=== PATIENT | male | born 1995 | race Caucasian/White ===

== ENCOUNTER 2024-10-18 12:31 | Emergency (ER) | payer SELFPAY ==
--- OUTSIDE RECORDS SUMMARY | 2024-10-18 12:34 | XMS_ITS | Clinical Summary ---
Author Organization [address] Address [address] [place] [address] Care Team Providers Care Linux Unix Engineer Name Role Phone Sherri Clements MD Primary Care Provider Allergies Active Allergy Reactions Criticality Noted Date Comments Avocado Itching Low 01/09/2019 Cat Hair Standardized Allergenic Extract Shortness of breath High 08/31/2013 Asthma and eyes swell. Medications fluticasone propionate (FLONASE) 50 mcg/actuation nasal spray 4 Active budesonide-formo teroL (Symbicort) 160-4.5 mcg/actuation inhalerIndicatio ns:Mild intermittent asthma without complication Inhale 2 puffs 2 (two) times a day as needed (SOB/wjheeze during flares) Rinse mouth with water after use. Do not swallow. 1 each 2 4 Active Additional Information Patient not taking.Reported on 10/04/2024 albuterol HFA (PROVENTIL HFA,VENTOLIN HFA,PROAIR HFA) 90 mcg/actuation inhalerIndicatio ns:Mild intermittent asthma without complication Inhale 2 puffs every 6 (six) hours as needed for wheezing 1 each 4 4 Active Active Problems Problem Noted Date Diagnosed Date Cat allergies 09/14/2023 Assessment & Plan (09/14/2023 11:01 AM CDT): Chronic. Avoid triggers. Encouraged use of antihistamines Family history of heart disease 09/14/2023 Assessment & Plan (09/14/2023 11:02 AM CDT): Strong family history of heart disease with his father having a heart attack in his 40s and a sister having heart attack around age 35. We will check cholesterol level. Encouraged healthy diet, exercise, healthy body weight. Encouraged abstinence from nicotine containing products. We will determine if cholesterol medication is needed based on cholesterol results. If cardiovascular symptoms develop he will need to let me know and we will pursue cardiac evaluation Mixed dyslipidemia 09/14/2023 Asthma 08/31/2013 Assessment & Plan (09/14/2023 11:01 AM CDT): Chronic. Seems relatively controlled. Symptoms are primarily exercise induced. Denies any other significant symptoms except when exposed to allergens including cat dander. Patient would still like to have the Symbicort that he can use as needed when his symptoms flare more significantly. I think this is reasonable so a prescription was provided. Continue p.r.n. albuterol. Avoid triggers. Could always consider trial of Singulair if needed Encounters Date Type Department Care Team Description 10/04/2024 2:45 PM CDT Office Visit [facility] at [address] [address] Darline You PA Perforation of right tympanic membrane (Primary Dx) from Last 3 Months Immunizations Immunization Administration Dates Next Due DTP 02/17/1995, 5,03/11/1994,01/07 DTP / HiB 02/17/1995, 5,03/11/1994,01/07 DTaP 1997 Hep B, Adolescent or Pediatric 05/06/1994,1993,1993 Hib (PRP-T) 02/17/1995, 5,03/11/1994,01/07 IPV 1997, 5,05/06/1994,03/11,01/07/1994 Influenza, Quadrivalent, Spl it, Intramuscular 02/13/2020,01/12/2019,03/10/2017 Influenza, Quadrivalent, Spl it, Preservative Free, Intramuscular 02/15/2018 Influenza, Split 01/09/2008,02/08/2006 Influenza, Unspecified 03/08/2023(Deferred: Codie ent Refused) MMR 1997,02/17/1995 Meningococcal C Conjugate 10/08/2008 Meningococcal MCV4, Unspecified 01/11/2012 OPV 1997, 5,05/06/1994,03/11,01/07/1994 Tdap 09/05/2007 Varicella 09/05/2007,04/07/1999 Surgical History Surgery Date Site/Laterality Comments WISDOM TOOTH EXTRACTION Medical History Medical History Date Comments Asthma Family History Medical History Relation Name Comments Hyperlipidemia Brother Hypertension Brother Coronary artery disease Father Heart attack Father tobacco Father No Known Problems Mother Coronary artery disease Sister 1 Hyperlipidemia Sister 1 No Known Problems Sister 2 No Known Problems Sister 3 Colon cancer Neg Hx Prostate cancer Neg Hx Relation Name Status Comments Brother Alive Father Maternal Grandfather Maternal Grandmother Mother Alive Paternal Grandfather Paternal Grandmother Sister 1 Alive Sister 2 Alive Sister 3 Alive Social History Tobacco Use Types Packs/Day Years Used Date Smoking Tobacco: Never Smokeless Tobacco: Current Snuff Tobacco Cessation:Ready to Q uit: No; Counseling Given: Yes AUDIT-C Answer Date Recorded Q1: How often do you have a drink containing alc ohol? 2-3 times a week 09/14/2023 Q2: How many drinks containi ng alcohol do you have on a typical day when you are drinking? 3 or 4 09/14/2023 Q3: How often do you have si x or more drinks on one occasion? 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 MATERIALS ASSISTANT Gender Identity Not on file Sexual Orientation Not on file Obstetrics History Last Filed Vital Signs Vital Sign Reading Time Taken Comments Blood Pressure 130/82 10/04/2024 2:26 PM CDT Pulse 75 10/04/2024 2:26 PM CDT Temperature 36.6 C (97.8 F) 10/04/2024 2:26 PM CDT Respiratory Rate 20 10/04/2024 2:26 PM CDT Oxygen Saturation 98% 10/04/2024 2:26 PM CDT Inhaled Oxygen Concentration - - Weight 81.2 kg (179 lb) 10/04/2024 2:26 PM CDT Height 175.3 cm (5' 9) 09/14/2023 9:47 AM CDT Body Mass Index 26.43 09/14/2023 9:47 AM CDT Plan of Treatment Health Maintenance Due Date Last Done Comments Pneumococcal vaccine <65 (1 of 2 - PCV) 2012 DTaP/Tdap/Td Vaccine (7 - Td or Tdap) 09/04/2017 09/05/2007, 1997, 02/17/1995, Additional history exists HPV Vaccines (1 - 3-dose SCD M series) 2020 Covid-19 Vaccine (2023-2 5 season) 2023 02/14/2021, 04/08/2020, 03/11/2020 Depression Screening 09/13/2024 09/14/2023 Regular Well Visit/Exam 18-64 09/13/2024 09/14/2023 Influenza Vaccine (#1) 2024 , 01/12/2019, 02/15/2018, Additional history exists Hepatitis B Screening Completed 05/06/1994 , 1993, 1993 Varicella Vaccines Completed 09/05/2007, 04/07/1999 Hepatitis C Screening Completed 09/14/2023 Procedures Procedure Name Priority Date/Time Associated Diagnosis Comments HEPATITIS C ANTIBODY Routine 09/14/2023 10:44 AM CDT Annual physical exam Encounter for hepatitis C screening test for low risk patient from Last 3 Months or Most Recently Relevant to Health Maintenance Results * Hepatitis C antibody Blood (09/14/2023 10:44 AM CDT) Hep C Ab Nonreactive Nonreactive Comment: Interpretive Data Nonreactive: Antibodies to HCV not detected. Does NOT exclude the possibility of recent exposure to HCV. Equivocal: Equivocal for HCV antibodies. Supplemental molecular testing will be automatically performed to determine infection status in accordance with current CDC screening recommendations. Reactive: Positive for HCV antibodies. This may represent current or past HCV infection. Supplemental molecular testing will be automatically performed to determine current infection status in accordance with current CDC screening recommendations. Interpretive data was last revised on 2019. Blood 09/14/2023 10:4 4 AM CDT 09/14/2023 2:37 PM CDT Sherri Clements MD LAB MICROBIOLOGY - GEN ERAL ORDERABLES Final Result [facility] [id number] [address] Department [place] [address] from Last 3 Months or Most Recently Relevant to Health Maintenance Insurance [facility] Care Teams Linux Unix Engineer Relationship Specialty Start Date End Date Sherri Clements MD PCP - General Family Medicine 09/14/23
--- OUTSIDE RECORDS SUMMARY | 2024-10-18 12:34 | XMS_ITS | Clinical Summary ---
Author Organization [facility] Address [address] [place] [address] Care Team Providers Care Nurse'S Assistant Name Role Phone Pham Loja MD Unavailable [phone] Jossie Omer WEIGHER AND CHARGER-SUSTAINABILITY PROJECT MANAGER Primary Care Provider [phone] Anil Noriega MD Unavailable [phone] Jes Sharp WEIGHER AND CHARGER-SUSTAINABILITY PROJECT MANAGER Unavailable Source Comments [facility],non-owned Affiliates and Associated Physician Practices is amultiple site organization consisting of ambulatory clinics and hospital sitesin [place], [place], [place] and [place]. This disclosure is being madepursuant to the Care Everywhere program and may not contain all information available regarding this patient. Last updated 17.[facility] Allergies Active Allergy Reactions Criticality Noted Date Comments Avocado Itching 01/09/2019 Cat Hair Extract Other 08/31/2013 Asthma and eyes swell. Medications * Be aware that medications may not be up to date on this document. Alwaysverify current medications with the patient. SYMBICORT 160-4.5 MCG/ACT inhaler 11/07/2013 Active PROAIR HFA 108 (90 BASE) MCG/ACT inhaler 11/07/2013 Act radha fluticasone propionate (FLONASE) 50 MCG/ACT nasal spray 11/07/2013 Active meloxicam (MOBIC) 15 MG tablet Take 1 (one) tablet by mouth once daily 30 tablet 07/13/2020 Active Active Problems Problem Noted Date Diagnosed Date Asthma 08/31/2013 Resolved Problems Problem Noted Date Diagnosed Date Resolved Date Abdominal pain, LLQ (left lower quadrant) 09/21/2016 08/09/2017 Immunizations Immunization Administration Dates Next Due DTP 1997, 5,05/06/1994,1994,01/07/1994 HEP B VACCINE, PED/ADOL 05/06/1994,1993, HIB-PRP-T 4 DOSE 02/17/1995, 5,03/11/1994,1993 INFLUENZA VACCINE 01/09/2008,02/08/2006 INFLUENZA VACCINE, QUADR. (F LUZONE; FLULAVAL; FLUARIX; AFLURIA QUADRIVALENT; 6MO+), 0.5 ML (IIV4) 02/15/2018 MENINGOCOCAL MENINGITIS 01/11/2012 MMR 1997,02/17/1995 POLIO IPV 1997, 5,05/06/1994,1994,01/07/1994 TDAP (7yrs+) 09/05/2007 VARICELLA 09/05/2007,04/07/1999 Family History Medical History Relation Name Comments Cancer - Other Other Heart Disease Other Relation Name Status Comments Other Social History Tobacco Use Types Packs/Day Years Used Date Smoking Tobacco: Never Smokeless Tobacco: Never Tobacco Cessation:Counseling Given: No Alcohol Use Standard Drinks/Week Comments Yes 15 (1 standard drink = 0.6 oz pu re alcohol) Sex and Gender Information Value Date Recorded Sex Assigned at Not on file Legal Sex Male 9:58 AM CDT Gender Identity Not on file Sexual Orientation Not on file Occupation Industry Job Start Date Job End Date [employer] Not on file Not on file Not on file Last Filed Vital Signs Vital Sign Reading Time Taken Comments Blood Pressure 150/92 07/13/2020 3:15 AM CDT Pulse 74 07/13/2020 3:15 AM CDT Temperature 36.8 C (98.3 F) 07/13/2020 3:15 AM CDT Respiratory Rate 18 07/13/2020 3:15 AM CDT Oxygen Saturation 99% 07/13/2020 3:15 AM CDT Inhaled Oxygen Concentration - - Weight 79.4 kg (175 lb) 07/13/2020 3:15 AM CDT Height 175.3 cm (5' 9) 07/13/2020 3:15 AM CDT Body Mass Index 25.84 07/13/2020 3:15 AM CDT Plan of Treatment Health Maintenance Due Date Last Done Comments HIV SCREENING 2008 HEPATITIS C SCREENING 11/01/2011 PNEUMOCOCCAL VACCINE (1 of 2 - PCV) 2012 DTAP/TDAP/TD VACCINES (7 - Td or Tdap) 09/04/2017 09/05/2007, 1997, 02/17/1995, Additional history exists HPV VACCINE (1 - 3-dose SCDM series) 2020 COVID-19 VACCINE ( - season) 2023 DEPRESSION SCREENING 03/08/2024 INFLUENZA VACCINE (#1) 2024 , 02/15/2018, 01/09/2008, Additional history exists ZOSTER VACCINE (1 of 2) 11/06/2043 HEPATITIS B VACCINE Completed 05/06/1994, 1993, 1993 HIB VACCINE Completed 02/17/1995, 03/1994, 03/11/1994, Additional history exists MENINGOCOCCAL GROUPS A/C/Y/W VACCINE Completed 01/11/2012 MENINGOCOCCAL (Group B) VACCINE SHARED DECISION-MAKING Aged Out No longer eligible based on patient's age to complete this topic Insurance [facility] Care Teams Nurse'S Assistant Relationship Specialty Start Date End Date Jossie Omer APRN-SUSTAINABILITY PROJECT MANAGER [address] [place], [place] [phone] PCP - General Family Medicine 05/15/18 Pham Loja MD [address] [place] [id number] Family Medicine 08/31/13 [place] [id number] [address] Allergy and Immunology 02/22/20 Jes Sharp APRN-SUSTAINABILITY PROJECT MANAGER [address] [place] [address] Nurse Practitioner Nurse Practitioner 08/07/20
[2024-10-18 12:49] VITALS: BP 145/83; PULSE 63; RESP 16; TEMP 36.8; O2SAT 98
--- OUTSIDE RECORDS SUMMARY | 2024-10-18 14:47 | XMS_ITS | Clinical Summary ---
Author Organization [facility] Address [address] [address] Care Team Providers Care Ur Coordinator Name Role Phone Pham Loja MD Unavailable [phone] Jossie Omer SALES PROJECT ADMINISTRATOR-COUNTY SURVEYOR Primary Care Provider [phone] Anil Noriega MD Unavailable [phone] Jes Sharp SALES PROJECT ADMINISTRATOR-COUNTY SURVEYOR Unavailable [phone] Source Comments [facility],non-owned Affiliates and Associated Physician Practices is amultiple site organization consisting of ambulatory clinics and hospital sitesin [place], [place], [place] and [place]. This disclosure is being madepursuant to the Care Everywhere program and may not contain all information available regarding this patient. Last updated 17.[facility] Allergies Active Allergy Reactions Criticality Noted Date [...] Industry Job Start Date Job End Date [employer] Not on file Not on file [...] patient's age to complete this topic Insurance [facility] Care Teams Ur Coordinator Relationship Specialty Start Date End Date Jossie Omer APRN-COUNTY SURVEYOR [address] [place], [place] [phone] PCP - General Family Medicine 05/15/18 Pham Loja MD [address] [place] [id number] Family Medicine 08/31/13 [place] [id number] [address] [address] Allergy and Immunology 02/22/20 Jes Sharp APRN-COUNTY SURVEYOR [address] [place] [address] Nurse Practitioner Nurse Practitioner 08/07/20
--- OUTSIDE RECORDS SUMMARY | 2024-10-18 14:47 | XMS_ITS | Clinical Summary ---
Author Organization [address] Address [address] [place] [address] Care Team Providers Care Flight Nurse Name Role Phone Sherri Clements MD Primary [...] Description 10/04/2024 2:45 PM CDT Office Visit [facility] at [address] [address] Darline You PA Perforation of [...] on file Legal Sex Male 12:24 AM RECEP Gender Identity Not on file Sexual Orientation [...] - GEN ERAL ORDERABLES Final Result [facility] [id number] [address] Department [place] [address] from Last 3 Months or Most Recently Relevant to Health Maintenance Insurance [facility] Care Teams Flight Nurse Relationship Specialty Start Date End Date Sherri Clements MD PCP - General Family Medicine 09/14/23
== END 2024-10-18 15:49 | disposition left against medical advice (07) ==
LOC: ANHED 14:43
PROVIDERS: PCP Emergency Medicine
DX: Z53.21 Procedure and treatment not carried out due to patient leaving prior to being seen by health care provider (principal)
CPT/HCPCS: 99199

== ENCOUNTER 2024-12-28 15:17 | Outpatient (CLI) | payer BC, SELFPAY ==
--- NOTE | ~2024-12-28 | US_ITS ---
EXAMINATION: US abdomen complete, 12/28/2024 15:21 CDT HISTORY: Unspecified abdominal pain COMPARISON: None Technique: Richards-scale and color Doppler images were obtained. Findings: LIVER: Lliver contours intact, no lesions. Normal echogenicity. . GALLBLADDER/BILIARY: Unremarkable.No cholelithiais, wall thickening or pericholecystic fluid. No biliary dilatation. CBD 3.5 mm. Fletcher sign negative. PANCREAS: Unremarkable. SPLEEN: Unremarkable, no splenomegaly. KIDNEYS: The renal cortices are intact with no solid masses or calculi, no hydronephrosis Right Kidney: Right kidney 10 x 4.9 x 5.6 cm, subcentimeter renal cyst 5 x 7 mm. Left Kidney: Left kidney 10.9 x 5.9 x 3.9 cm. AORTA: Normal caliber aorta. IVC: Unremarkable. FREE FLUID: None. Impression: No acute abnormality. Reviewed, dictated and finalized at location P. Impression: No acute abnormality.
== END 2024-12-28 15:18 | disposition home or self-care (01) ==
LOC: MICIMG 15:18
PROVIDERS: PCP Internal Medicine; Visit Provider Internal Medicine
DX: R10.9 Unspecified abdominal pain (principal)
CPT/HCPCS: 76700